=== PATIENT | female | born 1990 | race Caucasian/White ===

== ENCOUNTER 2024-03-06 21:31 | Inpatient (IN) | payer OTHER ==
[2024-03-06] MEDS ORDERED: hydrALAZINE 20 MG/ML VIAL SLOW IVP PRN ×2 (21:49→22:23)
[2024-03-06] MEDS ORDERED: Ondansetron PF 4 MG/2 ML Vial IVP PRN (22:23)
[2024-03-06] MEDS ORDERED: Methylergonovine 0.2 MG/ML VIAL IM PRN (22:23)
[2024-03-06] MEDS ORDERED: Bicitra 30 ML UDCUP PO PRN (22:23)
[2024-03-06] MEDS ORDERED: Diphenoxylate HCl/Atropine Tablet PO PRN (22:23)
[2024-03-06] MEDS ORDERED: Carboprost 250 MCG/ML AMP IM PRN (22:23)
[2024-03-06] MEDS ORDERED: Promethazine HCl 25 MG/ML VIAL IM PRN (22:23)
[2024-03-06] MEDS ORDERED: Acetaminophen 500 MG TAB PO PRN (22:23)
[2024-03-06] MEDS ORDERED: Misoprostol 200 MCG TAB PR PRN (22:23)
[2024-03-06] MEDS ORDERED: Famotidine/PF 20 mg/2ml Vial SLOW IVP PRN (22:23)
[2024-03-06] MEDS ORDERED: Tranexamic Acid 1,000 MG/10 ML VIAL IVP PRN (22:23)
[2024-03-06] MEDS ORDERED: Oxytocin 30 units/NS 500 ML 500 ML IV SCH (22:30)
[2024-03-06] MEDS ORDERED: Lactated Ringer's 1,000 ML IV SCH (22:30)
[2024-03-06] MEDS ORDERED: CEFAZOLIN 2 GM in Sodium Chloride 0.9% 100 ML IVPB SCH (22:30)
[2024-03-06] MEDS ORDERED: Penicillin G Potassium 5 MILL.UNITS in Sodium Chloride 0.9% 100 ML IVPB SCH (22:45)
[2024-03-06 23:17] LABS: Hematocrit 38.1 % (34.9-44.5); Hemoglobin 13.1 g/dL (12.0-15.5); Mean Corpuscular HGB CONC 34.4 g/dL (32.0-36.0); Mean Corpuscular Volume 87.4 fL (81.6-98.3); Mean Platelet Volume 12.5 fL (7.4-10.4); Platelet Count 152 10x3/uL (150-450); Red Blood Cell (RBC) Count 4.36 10x6/uL (3.90-5.03); White Blood Cell (WBC) Count 10.2 10x3/uL (3.5-10.5)
[2024-03-06 23:53] LABS: HBsAg Index 0.25 S/CO (0-0.99); Hep B Surf Ag - L&D Non-Reactive S/CO (NonReactive)
[2024-03-06 23:54] LABS: Syphilis Antibody Nonreactive (Nonreactive); Syphilis Antibody Index 0.05 S/CO (<1.00 Non-Reactive)
[2024-03-07 00:47] VITALS: BMI 31.8
[2024-03-07] MEDS ORDERED: Betamet Acet/Betamet Na Ph 30 MG/5 ML VIAL IM SCH (01:00)
[2024-03-07] MEDS ORDERED: Bisacodyl 10 MG SUPP PR PRN (01:04)
[2024-03-07] MEDS ORDERED: HYDROcodone/Acetaminophen 5/325 mg Tablet PO PRN (01:04)
[2024-03-07] MEDS ORDERED: Simethicone Chewable 80 MG TAB PO PRN (01:04)
[2024-03-07] MEDS ORDERED: Lanolin Ointment 7 GM TUBE TOP PRN (01:04)
[2024-03-07] MEDS ORDERED: hydrALAZINE 20 MG/ML VIAL SLOW IVP PRN (01:04)
[2024-03-07] MEDS ORDERED: diphenhydrAMINE 25 MG CAP PO PRN (01:04)
[2024-03-07] MEDS ORDERED: Meperidine HCl/PF 25 MG (1 mL) VIAL SLOW IVP PRN (01:13)
[2024-03-07] MEDS ORDERED: HYDROmorphone 0.5 MG/0.5 ML SYRINGE SLOW IVP PRN (01:13)
[2024-03-07] MEDS ORDERED: Naloxone HCl 0.4 mg/ml Vial IVP PRN ×2 (01:13)
[2024-03-07] MEDS ORDERED: diphenhydrAMINE 50 MG/ML VIAL IVP PRN (01:13)
[2024-03-07] MEDS ORDERED: Ketorolac Tromethamine 30 MG (1 mL) VIAL IVP PRN ×2 (01:13→04:09)
[2024-03-07] MEDS ORDERED: Promethazine HCl 25 MG/ML VIAL IM PRN (01:13)
[2024-03-07] MEDS ORDERED: Moisturizing Cream (Eucerin) 113 GM JAR TOP PRN (01:13)
[2024-03-07] MEDS ORDERED: Ondansetron PF 4 MG/2 ML Vial IVP PRN ×2 (01:13)
[2024-03-07] MEDS ORDERED: Naloxone HCl 0.4 mg/ml Vial IV PRN (01:13)
[2024-03-07] MEDS ORDERED: Communication Order-Pharmacy FS SCH (01:15)
[2024-03-07] MEDS: Ketorolac Tromethamine 30 MG (1 mL) VIAL IVP SCH (02:41)
[2024-03-07] MEDS: fentaNYL 50 mcg/mL 1 mL Vial SLOW IVP PRN (03:07)
[2024-03-07 03:29] LABS: Hematocrit 36.3 % (34.9-44.5); Hemoglobin 12.5 g/dL (12.0-15.5)
[2024-03-07] MEDS: Phenylephrine 40 MG/NS 250 ML 250 ML ONE (04:04)
[2024-03-07] MEDS: Morphine PF 10 MG/10 ML VIAL ONE (04:04)
[2024-03-07] MEDS: Azithromycin 500 MG VIAL ONE (04:04)
[2024-03-07] MEDS: fentaNYL 50 mcg/mL 1 mL Vial ONE (04:04)
[2024-03-07] MEDS: Oxytocin 10 UNITS/ML VIAL ONE (04:04)
[2024-03-07] MEDS: Ondansetron PF 4 MG/2 ML Vial ONE (04:04)
[2024-03-07] MEDS: CEFAZOLIN 2 GM VIAL ONE (04:04)
[2024-03-07] MEDS: Dexamethasone 4 mg/ml Vial ONE (04:04)
[2024-03-07 04:31] LABS: HIV (1/2) Antibody/Antigen Non-Reactive (NonReactive); HIV 1/2 INDEX 0.05 S/CO (<1.00)
[2024-03-07] MEDS ORDERED: Penicillin G 2.5 MILL.units 2.5 MILL.UNITS in Premix 1 BAG IVPB SCH (05:00)
[2024-03-07] MEDS ORDERED: Ibuprofen 800 MG TAB PO SCH (06:00)
[2024-03-07] MEDS: Boostrix 0.5 ML (Tdap) VIAL (>/=7 yrs of age) IM ONE (08:01)
[2024-03-07] MEDS: Ferrous Sulfate 325 MG TAB PO SCH (08:04)
[2024-03-07] MEDS: Docusate 100 MG CAP PO SCH (08:25)
[2024-03-07] MEDS: Prenatal Vitamin 1 TAB PO SCH (08:25)
[2024-03-07] MEDS: HYDROcodone/Acetaminophen 5/325 mg Tablet PO PRN (11:58)
[2024-03-07] MEDS: Ibuprofen 600 MG TAB PO PRN (22:40)
[2024-03-08] MEDS ORDERED: Ibuprofen 800 MG TAB PO SCH (06:00)
[2024-03-08 14:53] VITALS: BP 118/69; TEMP 97.7
[2024-03-12] MEDS ORDERED: Ibuprofen 800 MG TAB PO SCH (06:00)
== END 2024-03-08 17:10 | disposition home or self-care (01) | DRG 786 ==
LOC: CSHLD/OP 21:31 → CSHLD 22:43 → CSHPP 03-07 03:27
PROVIDERS: ADMIT Obstetrics & Gynecology; ATTEND Obstetrics & Gynecology
PROC: 10D00Z1 Extraction of Products of Conception, Low, Open Approach (ICD-10-PCS; principal; 2024-03-07)
DX: O42.02 Full-term premature rupture of membranes, onset of labor within 24 hours of rupture (principal); O60.14X0 Preterm labor third trimester with preterm delivery third trimester, not applicable or unspecified; O41.03X0 Oligohydramnios, third trimester, not applicable or unspecified; O32.1XX0 Maternal care for breech presentation, not applicable or unspecified; Z3A.35 35 weeks gestation of pregnancy; Z37.0 Single live birth; Z55.6 Problems related to health literacy
CPT/HCPCS: 36415; 51702; 76815; 80053; 85014; 85018; 85025; 86762; 86780; 86850; 86900; 86901; 87340; 87389; 99285; J1100; J1885; J2274; J2405; J2590; J3010